=== PATIENT | male | born 1990 | race Two or more races ===

== ENCOUNTER 2024-06-21 06:54 | Day surgery (SDC) | payer OTHER, SELFPAY ==
[2024-06-21] VITALS (10 sets, daily range): BP systolic 121–163; BP diastolic 81–99
[2024-06-21] MEDS: TYLENOL 1000 MG PO (07:58)
[2024-06-21] MEDS: NORMOSOL-R/PLASMALYTE-A 1000 IV (08:18)
== END 2024-06-21 12:52 | disposition home or self-care (01) ==
LOC: SDS 06:54
PROVIDERS: ATTENDING PHYSICIAN Otolaryngology
DX: J34.2 Deviated nasal septum (principal); J34.3 Hypertrophy of nasal turbinates
CPT/HCPCS: 30520; 30140